=== PATIENT | male | born 1960 | race Hispanic/Latino ===

== ENCOUNTER 2021-07-16 09:12 | Outpatient (CLI) | payer OTHER ==
--- NOTE | 2021-07-16 10:10 | XRay Report ---
Right knee 2 views INDICATION: Knee pain FINDINGS: There is tricompartmental degenerative osteoarthrosis. Significant joint space narrowing wi th large marginal aspects throughout. Moderate joint effusion. Signer Name: Nolan Carlisle MD Signed: 07/16/2021 10:05 AM Workstation Name: [id number]
[2021-07-16 10:50] LABS: Albumin 4.5 g/dL (3.9-5); Calcium 9.6 mg/dL (8.4-10.2)
== END 2021-07-16 09:13 | disposition home or self-care (01) ==
LOC: XRAY 09:12
PROVIDERS: ATTEND Internal Medicine
DX: M17.11 Unilateral primary osteoarthritis, right knee (principal); M25.461 Effusion, right knee
CPT/HCPCS: 36415; 80053